=== PATIENT | male | born 1965 | race Caucasian/White ===

== ENCOUNTER 2018-05-29 07:36 | Day surgery (SDC) | payer OTHER ==
[~2018-05-29 07:36] MED LIST: TIMOLOL MALEATE; [UNRECOGNIZED DRUG - OTHER]
[2018-05-29] MEDS: MOXIFLOXACIN 0.5% 3 ML OPH OPER (08:21)
[2018-05-29] MEDS: PHENYLephrine 10% 5 ML OPH OPER (08:22)
[2018-05-29] MEDS: CYCLOPENTOLATE 2% 2 ML OPH OPER (08:22)
[2018-05-29] MEDS: NEPAFENAC 0.1% 3 ML OPH OPER (08:23)
[2018-05-29] MEDS ORDERED: LIDOCAINE 1% (MPF) 5 ML VIAL (08:54)
[2018-05-29] MEDS ORDERED: SODIUM BICARBONATE (IV ADD) 50 ML (08:54)
[2018-05-29] MEDS ORDERED: EPINEPHrine 1 MG INJ (08:54)
[2018-05-29] MEDS ORDERED: BUPIVACAINE 0.75% (MPF) 10 ML INJ (08:54)
[2018-05-29] MEDS ORDERED: LIDOCAINE 2% (SDV) 5 ML INJ (08:58)
[2018-05-29] MEDS ORDERED: PROPOFOL 20 ML (09:33)
[2018-05-29] MEDS: LIDOCAINE 1% (MPF) 5 ML VIAL INJ (09:40)
[2018-05-29] MEDS: CARBACHOL 0.01% 1.5 ML OPH INJ IO (10:00)
[2018-05-29] MEDS ORDERED: CARBACHOL 0.01% 1.5 ML OPH INJ (10:17)
[2018-05-29] MEDS: TIMOLOL 0.5% 5 ML OPH RIGHT EYE (10:20)
[2018-05-29] MEDS ORDERED: hydrALAzine 20 MG INJ IV (10:30)
[2018-05-29] MEDS ORDERED: LABETALOL HCL 20MG INJ IV (10:30)
[2018-05-29] MEDS ORDERED: METOCLOPRAMIDE 10 MG INJ IV (10:30)
[2018-05-29] MEDS ORDERED: OXYCODONE/ACETAMINOPHEN (5/325) TAB PO ×2 (10:30)
[2018-05-29] MEDS ORDERED: DIPHENHYDRAMINE 50 MG INJ IV (10:30)
[2018-05-29] MEDS ORDERED: MEPERIDINE 25 MG INJ IV (10:30)
[2018-05-29] MEDS ORDERED: EPHEDrine SULFATE 50 MG/5 ML SYG IV (10:30)
[2018-05-29] MEDS ORDERED: ONDANSETRON 4 MG INJ IV (10:30)
[2018-05-29] MEDS ORDERED: MIDAZOLAM 1 MG/ML 2 ML INJ IV (10:30)
[2018-05-29] MEDS ORDERED: FENTAnyl 50 MCG/ML VIAL IV ×3 (10:30)
== END 2018-05-29 11:57 | disposition home or self-care (01) ==
LOC: SDS 07:36
DX: H25.11 Age-related nuclear cataract, right eye (principal); M10.9 Gout, unspecified; E66.9 Obesity, unspecified; Z68.34 Body mass index [BMI] 34.0-34.9, adult; Z88.0 Allergy status to penicillin
CPT/HCPCS: 66984